=== PATIENT | male | born 1960 | race Caucasian/White ===

== ENCOUNTER 2017-07-21 13:30 | Emergency (ER) | payer OTHER ==
--- NOTE | 2017-07-21 15:59 | ED ---
Upper Extremity Pain - HPI Summary HPI Summary: Pt here w/ acute on chronic UE neuropathy, most recently Lt side. He reports sx of tingling, numbness sensation from axilla over ventral arm/forearm and into palm of hands/fingers. Denies weakness. Worse w/ movement, aggravated by walking - better w/ resting arm abducted away from body and rested on surface. Took ibuprofen prior to arrival which helped w/ rest and movement some. Took muscle relaxer last night which helped him sleep. No h/o neck pain but reports h /o carrying around backpacks and Lt shoulder would get numbness in trapezius area until he removed backpack. No h/o neck or shoulder trauma. Since he hasn't been carrying back packs recently, he believes his new triggers are from sleeping on his side as he wakes up with sx on the side where he slept (admits he slept on Lt side last night). Baseline neuropathy in hands/feet from DM. Denies pain, numbness or weakness in LE's and no headaches. - History of Current Complaint Hx Obtained From: Patient <Bonny Judd - Last Filed: 07/21/17 18:51> <Meghna Cruz - Last Filed: 07/22/17 07:37> - History of Current Complaint Chief Complaint: EDShoulderClavicleInj Stated Complaint: PAIN/ITCHING HAND-ARM Time Seen by Provider: 07/21/17 13:40 - Allergies/Home Medications Allergies/Adverse Reactions: Allergies Allergy/AdvReac Type Severity Reaction Status Date / Time Amoxicillin Allergy Intermediate Hives Verified 07/21/17 13:32 Shellfish Allergy Allergy Intermediate Hives Verified 07/21/17 13:32 Sulfamethoxazole Allergy Palpitation Verified 07/21/17 13:32 w/Trimethoprim s [From Bactrim] ENVIRONMENTAL/SHELLFISH Allergy CONGESTION,ITCHY Uncoded 07/21/17 13:32 EYES, RUNNY NOSE PMH/Surg Hx/FS Hx/Imm Hx Previously Healthy: Yes Endocrine/Hematology History: Reports: Hx Anticoagulant Therapy - plavix, Hx Diabetes, Hx Thyroid Disease - thyroid removed 1994, Hx Anemia - HISTORY OF, Other Endocrine/Hematological Disorders - Thyroid CA and Thyroidectomy Denies: Hx Blood Disorders, Hx Blood Transfusions, Hx Bone Marrow Disease, Hx Systemic Lupus Erythematosus, Hx Unexplained Bleeding Cardiovascular History: Reports: Hx Angina, Hx Angioplasty, Hx Auto Implanted Cardiovert Defib, Hx Cardiomegaly, Hx Congestive Heart Failure, Hx Coronary Artery Disease - CHOLESTEROL CONTROL WITH MEDICATIONS, Hx Hypercholesterolemia, Hx Hypertension - CONTROL WITH MEDS, Hx Myocardial Infarction, Hx Pacemaker/ICD , Hx Valvular Heart Disease, Other Cardiovascular Problems/Disorders - CAD Denies: Hx Aneurysm, Hx Cardiac Arrest, Hx Congenital Heart Disease, Hx Deep Vein Thrombosis, Hx Hypotension, Hx Peripheral Vascular Disease, Hx Rheumatic Fever, Hx Syncope Respiratory History: Reports: Hx Asthma, Hx Pleural Effusion, Hx Pneumonia, Hx Sleep Apnea - CANT SLEEP WITH CPAP, SO HE DOES NOT USE Denies: Hx Chronic Bronchitis, Hx Chronic Obstructive Pulmonary Disease (COPD ), Hx Cystic Fibrosis, Hx Lung Cancer, Hx Pulmonary Edema, Hx Pulmonary Embolism , Hx Seasonal Allergies, Other Respiratory Problems/Disorders GI History: Denies: Hx Cirrhosis, Hx Crohn's Disease, Hx Diverticulosis, Hx Gall Bladder Disease, Hx Gastroesophageal Reflux Disease, Hx Gastrointestinal Bleed, Hx Hiatal Hernia, Hx Irritable Bowel, Hx Jaundice, Hx Obstructive Bowel, Hx Ileostomy, Hx Pyloric Stenosis, Hx Ulcer, Other GI Disorders History: Reports: Hx Benign Prostatic Hyperplasia, Other Problems/ Disorders - SMALL BLADDER, Denies: Hx Acute Renal Failure, Hx Chronic Renal Failure, Hx Dialysis, Hx Kidney Infection, Hx Kidney Stones, Hx Renal Disease Musculoskeletal History: Reports: Hx Arthritis, Hx Tendonitis - HISTORY OF IN RIGHT FORE ARM, Other Musculoskeletal History - screws and plates in R ankle Denies: Hx Rheumatoid Arthritis, Hx Back Problems, Hx Bursitis, Hx Congenital Bone Abnormalities, Hx Fibromyalgia, Hx Gout, Hx Orthopedic Injury, Hx Osteoporosis, Hx Scoliosis Sensory History: Reports: Hx Cataracts - MILD, Hx Contacts or Glasses, Hx Vision Problem Denies: Hx Eye Injury, Hx Eye Prosthesis, Hx Glaucoma, Hx Macular Degeneration, Hx Deafness, Hx Hearing Aid, Hx Hearing Problem, Other Sensory Impairments Opthamlomology History: Reports: Hx Cataracts - MILD, Hx Contacts or Glasses, Hx Vision Problem Denies: Hx Eye Injury, Hx Eye Prosthesis, Hx Glaucoma, Hx Macular Degeneration, Other Sensory Impairments Neurological History: Reports: Hx Nerve Disease - neuropathy bilat hands & feet , Other Neuro Impairments/Disorders - Neuropathy in bilateral hands and feet Denies: Hx Dementia, Hx Developmental Delay, Hx Headaches, Hx Migraine, Hx Seizures, Hx Spinal Cord Injury, Hx Transient Ischemic Attacks (TIA) Psychiatric History: Reports: Hx Anxiety - ON MEDS, Hx Depression - ON MEDS, Hx Inpatient Treatment, Hx Suicide Attempt Denies: Hx Attention Deficit Hyperactivity Disorder, Hx Eating Disorder, Hx Panic Disorder, Hx Post Traumatic Stress Disorder, Hx Community Mental Health Tx , Hx Schizophrenia, Hx Bipolar Disorder, Hx of Violent Episodes Against Others, Hx Substance Abuse, Other Psychiatric Issues/Disorders - Cancer History Cancer Type, Location and Year: THYROID Hx Chemotherapy: No Hx Radiation Therapy: Yes - Surgical History Surgery Procedure, Year, and Place: 1993 LEFT NECK DISCECTOMY, ANAYA. 1994: THYROIDECTOMY, ANAYA. 2009: 6 screws and plate (unknown material) in right ankle [place] fall [place] [facility] [place] pacer/defibrillator [place]. 2007: CARDIAC CATHERIZATION WITH STENT, JACLYN. 03/2103 [employer]TRONIC PACEMAKER INSERTED, [facility] [place] Hx Anesthesia Reactions: No - Immunization History Date of Tetanus Vaccine: Unk Date of Influenza Vaccine: Unk Infectious Disease History: No Infectious Disease History: Denies: Hx Hepatitis, Hx Human Immunodeficiency Virus (HIV), Hx Shingles, Hx Tuberculosis, Traveled Outside the [place] in Last 30 Days - Family History Known Family History: Positive: Cardiac Disease, Diabetes, Other - COPD - mother - Social History Alcohol Use: None - currently Alcohol Amount: h/o abuse - last time 6 months ago Hx Substance Use: Yes Substance Use Type: Reports: None Substance Use Comment - Amount & Last Used: last used last night Hx Tobacco Use: No Smoking Status (MU): Never Smoked Tobacco Have You Smoked in the Last Year: No <Bonny Judd - Last Filed: 07/21/17 18:51> Review of Systems Constitutional: Negative Negative: Fever, Chills Negative: Sore Throat, Ear Ache Cardiovascular: Negative Negative: Chest Pain - this does not feel like cardiac pain Respiratory: Negative Negative: Shortness Of Breath, Cough Gastrointestinal: Negative Negative: Abdominal Pain, Vomiting, Diarrhea, Nausea Positive: no symptoms reported Musculoskeletal: Other - see HPI Skin: Negative Neurological: Other - see HPI Psychological: Normal - stable - controlled All Other Systems Reviewed And Are Negative: Yes <Bonny Judd - Last Filed: 07/21/17 18:51> Physical Exam Triage Information Reviewed: Yes Vital Signs On Initial Exam: Initial Vitals Temp Pulse Resp BP Pulse Ox 96.4 F 77 20 164/103 97 07/21/17 13:32 07/21/17 13:32 07/21/17 13:32 07/21/17 13:32 07/21/17 13:32 Vital Signs Reviewed: Yes Appearance: Positive: Well-Appearing, No Pain Distress - at rest w/ Lt arm abducted from body, resting on a table, Obese Skin: Positive: Warm, Dry - no erythema, no ecchymosis over axillary area, breast, shoulder or back Head/Face: Positive: Normal Head/Face Inspection Eyes: Positive: EOMI ENT: Positive: Hearing grossly normal Neck: Positive: Supple, Nontender Respiratory/Lung Sounds: Positive: Breath Sounds Present Cardiovascular: Positive: Pulses are Symmetrical in both Upper and Lower Extremities - no edema of UE's Musculoskeletal: Positive: Normal, Strength/ROM Intact - fingers, wrist, elbow - can move shoulder but is apprehensive; better w/ passive ROM on Lt, Pain @ - supraspinatus m is TTP, delt w/ mild TTP Neurological: Positive: Normal, Sensory/Motor Intact, Alert, Oriented to Person Place, Time, CN Intact II-III Psychiatric: Positive: Normal - Kai Coma Scale Coma Scale Total: 15 <Bonny Judd - Last Filed: 07/21/17 18:51> Vital Signs On Initial Exam: Initial Vitals Temp Pulse Resp BP Pulse Ox 96.4 F 77 20 164/103 97 07/21/17 13:32 07/21/17 13:32 07/21/17 13:32 07/21/17 13:32 07/21/17 13:32 <Meghna Cruz - Last Filed: 07/22/17 07:37> Diagnostics - Vital Signs Vital Signs Temp Pulse Resp BP Pulse Ox 07/21/17 14:43 69 16 143/97 98 07/21/17 13:40 96.4 F 72 20 164/103 97 07/21/17 13:32 96.4 F 77 20 164/103 97 <Bonny Judd - Last Filed: 07/21/17 18:51> - Vital Signs Vital Signs Temp Pulse Resp BP Pulse Ox 07/21/17 19:39 97.8 F 70 17 154/94 07/21/17 14:43 69 16 143/97 98 07/21/17 13:40 96.4 F 72 20 164/103 97 07/21/17 13:32 96.4 F 77 20 164/103 97 <Meghna Cruz - Last Filed: 07/22/17 07:37> Course/Dx <Bonny Judd - Last Filed: 07/21/17 18:51> <Meghna Cruz - Last Filed: 07/22/17 07:37> - Diagnoses Provider Diagnoses: Cervical arthritis Discharge <Bonny Judd - Last Filed: 07/21/17 18:51> <Meghna Cruz - Last Filed: 07/22/17 07:37> - Discharge Plan Condition: Stable Disposition: HOME Patient Education Materials: Cervical Radiculopathy (ED), Degenerative Disc Disease (ED) Referrals: Rodolfo Tan MD [Primary Care Provider] - Additional Instructions: Rest, heat applied to neck Avoid looking down or up for extended periods of time - do not overhead reach, do not lift You may take acetaminophen 650mg every 6 hours for pain You may wear a soft cervical collar at night for prevention of poor neck posture while sleeping Follow-up with PCP this week - call tomorrow to schedule an appointment. *If you develop weakness, numbness or headache, change in vision, vomiting, return to ED Attestation Statement User Type: Provider - I was available for consult. This patient was seen by the [facility]. The patient was not presented to, seen by, or examined by me. -Av <Meghna Cruz - Last Filed: 07/22/17 07:37>
--- NOTE | 2017-07-21 16:17 | RAD ---
HISTORY: Left arm neuropathy COMPARISONS: None TECHNIQUE: Multiple contiguous axial CT scans were obtained of the cervical spine without intravenous contrast, with coronal and sagittal multiplanar reformations. FINDINGS: BRAIN: The visualized brain is unremarkable CENTRAL CANAL: Evaluation of the central canal is limited on CT technique; however, there is no obvious canalicular mass or epidural hemorrhage. ALIGNMENT: The alignment is normal, without subluxation or dislocation. VERTEBRAL BODIES: There is multilevel anterolateral marginal osteophyte formation most pronounced at C5-C6 and C6-C7. JOINTS: There is osteoarthritis of the atlantoaxial joint. There is osteoarthritis of the intervertebral and facet joints MUSCULATURE: Unremarkable INTERVERTEBRAL DISCS: There is diffuse loss of intervertebral disc height. AXIAL IMAGES: C2-C3: There is bilateral uncovertebral and facet hypertrophy. There is severe left neural foraminal narrowing. There is moderate right neural from February. There is mild narrowing of the central canal. C3-C4: There is bilateral uncovertebral and facet hypertrophy. There is severe bilateral neural foraminal narrowing. There is mild narrowing of the central canal. C4-C5: There is bilateral uncovertebral and facet hypertrophy. There is moderate bilateral neural foraminal narrowing. There is a small central disc protrusion measuring 0.3 centers in depth. There is no significant osseous central canal stenosis. C5-C6: There is bilateral uncovertebral and facet hypertrophy. There is severe bilateral neural foraminal narrowing. There is moderate narrowing of the central canal. C6-C7: There is bilateral uncovertebral facet hypertrophy. There is mild left and moderate right neural foraminal narrowing. There is moderate narrowing of the central canal. C7-T1: There is no osseous neural foraminal narrowing or central canal stenosis. SOFT TISSUES: The visualized soft tissues of the neck are unremarkable. The prevertebral fat stripe is preserved. OTHER: None. IMPRESSION: 1. DEGENERATIVE DISC DISEASE AND OSTEOARTHRITIS. 2. THERE IS MODERATE NARROWING OF THE CENTRAL CANAL AT C5-C6 AND C6-C7 WITH MILD NARROWING AT C2-C3 AND C3-C4. 3. THERE IS MULTILEVEL NEURAL FORAMINAL NARROWING DESCRIBED ABOVE
--- NOTE | 2017-07-21 18:02 | RAD ---
INDICATION: Left upper extremity neuropathy COMPARISON: None. TECHNIQUE: 4 views of the left shoulder were obtained. FINDINGS: The adequately corticated bones are in normal alignment. Joint spaces appear maintained. No fracture, dislocation or focal bony abnormality is seen. IMPRESSION: Normal radiograph of the left shoulder. If the patient's symptoms persist, follow-up imaging is recommended.
[2017-07-21 19:40] VITALS: BP 154/94
== END 2017-07-21 19:43 | disposition home or self-care (01) ==
LOC: ED 13:30
DX: M13.88 Other specified arthritis, other site (principal)
CPT/HCPCS: 72125; 93005; 99282

== ENCOUNTER 2019-06-25 02:34 | Emergency (ER) | payer OTHER ==
--- NOTE | 2019-06-25 03:26 | ED ---
HPI Cardiac - HPI Summary HPI Summary: This pt is a 59 y/o male presenting to [facility] c/o SOB. Pt reports he had a stent placed on 06/21/19 at [facility] and states it was an elective procedure. Prior to having stent placed he states he had to see a leasing representative to get his magnesium up and potassium down. 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 Small, recommended a stent. Pt reports since being discharged home from [facility] he has felt fatigued with mild exertion. At first he was able to do some things around his home but then began to feel tired. Pt believes his SOB has worsened since his procedure. Pt felt SOB from walking from his car to the ED today. 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 He reports he took his blood pressure at home and notes it was elevated. He states he has transient chest pain. Denies cough. - History of Current Complaint Chief Complaint: EDHypertension Stated Complaint: HIGH BP PER PT Time Seen by Provider: 06/25/19 03:17 Hx Obtained From: Patient Onset/Duration: Started Days Ago, Still Present Timing: Lasting Days Current Severity: Moderate Pain Intensity: 4 Pain Scale Used: 0-10 Numeric Chest Pain Location: Mid Sternal Chest Pain Radiates: No Aggravating Factor(s): Nothing Alleviating Factor(s): Nothing Associated Signs and Symptoms: Positive: Chest Pain, Shortness of Breath, Nausea , Vomiting. Negative: Fever, Chills, Cough - Allergy/Home Medications Allergies/Adverse Reactions: Allergies Allergy/AdvReac Type Severity Reaction Status Date / Time shellfish derived Allergy Intermediate Hives Verified 06/25/19 02:41 Sulfa (Sulfonamide Allergy Intermediate Palpitation Verified 06/25/19 02:41 Antibiotics) s amoxicillin Allergy Hives Verified 06/25/19 02:41 ENVIRONMENTAL/SHELLFISH Allergy CONGESTION,ITCHY Uncoded 06/25/19 02:41 EYES, RUNNY NOSE Home Medications: Home Medications Albuterol HFA INHALER* [Ventolin HFA Inhaler*] 1 - 2 puff INH Q4H PRN 06/25/19 [ History Confirmed 06/25/19] Aspirin 81 mg CHEW TAB* [Aspirin Low Dose TAB*] 81 mg PO DAILY 06/25/19 [ History Confirmed 06/25/19] Cyclobenzaprine TAB* [Flexeril 10 MG TAB*] 10 mg PO TID PRN 06/25/19 [History Confirmed 06/25/19] Insulin Glargine,Hum.rec.anlog [Lantus Solostar] 100 unit SQ DAILY 06/25/19 [ History Confirmed 06/25/19] Isosorbide Mononitrate ER TAB* [Imdur ER TAB*] 120 mg PO DAILY 06/25/19 [ History Confirmed 06/25/19] Loratadine 10 mg PO DAILY 06/25/19 [History Confirmed 06/25/19] Nitroglycerin TAB 0.4 MG* 0.4 mg SL Q5M PRN 06/25/19 [History Confirmed 06/25/19 ] Rivaroxaban TAB(*) [Xarelto 20 mg] 20 mg PO DAILY 06/25/19 [History Confirmed ] hydrALAZINE TAB* [Apresoline TAB*] 25 mg PO TID 06/25/19 [History Confirmed ] PMH/Surg Hx/FS Hx/Imm Hx Endocrine/Hematology History: Reports: Hx Anticoagulant Therapy - plavix, Hx Diabetes, Hx Thyroid Disease - removed, Hx Anemia - HISTORY OF, Other Endocrine/ Hematological Disorders - Thyroid CA and Thyroidectomy Denies: Hx Blood Disorders, Hx Blood Transfusions, Hx Bone Marrow Disease, Hx Systemic Lupus Erythematosus, Hx Unexplained Bleeding Cardiovascular History: Reports: Hx Angina, Hx Angioplasty, Hx Auto Implanted Cardiovert Defib, Hx Cardiomegaly, Hx Congestive Heart Failure, Hx Coronary Artery Disease - CHOLESTEROL CONTROL WITH MEDICATIONS, Hx Hypercholesterolemia, Hx Hypertension, Hx Myocardial Infarction, Hx Pacemaker/ICD, Hx Valvular Heart Disease, Other Cardiovascular Problems/Disorders - CAD Denies: Hx Aneurysm, Hx Cardiac Arrest, Hx Congenital Heart Disease, Hx Deep Vein Thrombosis, Hx Hypotension, Hx Peripheral Vascular Disease, Hx Rheumatic Fever, Hx Syncope Respiratory History: Reports: Hx Asthma, Hx Pleural Effusion, Hx Pneumonia, Hx Sleep Apnea - CANT SLEEP WITH CPAP, SO HE DOES NOT USE Denies: Hx Chronic Bronchitis, Hx Chronic Obstructive Pulmonary Disease (COPD ), Hx Cystic Fibrosis, Hx Lung Cancer, Hx Pulmonary Edema, Hx Pulmonary Embolism , Hx Seasonal Allergies, Other Respiratory Problems/Disorders GI History: Denies: Hx Cirrhosis, Hx Crohn's Disease, Hx Diverticulosis, Hx Gall Bladder Disease, Hx Gastroesophageal Reflux Disease, Hx Gastrointestinal Bleed, Hx Hiatal Hernia, Hx Irritable Bowel, Hx Jaundice, Hx Obstructive Bowel, Hx Ileostomy, Hx Pyloric Stenosis, Hx Ulcer, Other GI Disorders History: Reports: Hx Benign Prostatic Hyperplasia, Other Problems/ Disorders - SMALL BLADDER, Denies: Hx Acute Renal Failure, Hx Chronic Renal Failure, Hx Dialysis, Hx Kidney Infection, Hx Kidney Stones, Hx Renal Disease Musculoskeletal History: Reports: Hx Arthritis, Hx Tendonitis - HISTORY OF IN RIGHT FORE ARM, Other Musculoskeletal History - screws and plates in R ankle Denies: Hx Rheumatoid Arthritis, Hx Back Problems, Hx Bursitis, Hx Congenital Bone Abnormalities, Hx Fibromyalgia, Hx Gout, Hx Orthopedic Injury, Hx Osteoporosis, Hx Scoliosis Sensory History: Reports: Hx Cataracts - MILD, Hx Contacts or Glasses, Hx Vision Problem Denies: Hx Eye Injury, Hx Eye Prosthesis, Hx Glaucoma, Hx Macular Degeneration, Hx Deafness, Hx Hearing Aid, Hx Hearing Problem, Other Sensory Impairments Opthamlomology History: Reports: Hx Cataracts - MILD, Hx Contacts or Glasses, Hx Vision Problem Denies: Hx Eye Injury, Hx Eye Prosthesis, Hx Glaucoma, Hx Macular Degeneration, Other Sensory Impairments Neurological History: Reports: Hx Nerve Disease - neuropathy bilat hands & feet , Other Neuro Impairments/Disorders - Neuropathy in bilateral hands and feet Denies: Hx Dementia, Hx Developmental Delay, Hx Headaches, Hx Migraine, Hx Seizures, Hx Spinal Cord Injury, Hx Transient Ischemic Attacks (TIA) Psychiatric History: Reports: Hx Anxiety - ON MEDS, Hx Depression - ON MEDS, Hx Inpatient Treatment, Hx Suicide Attempt Denies: Hx Attention Deficit Hyperactivity Disorder, Hx Eating Disorder, Hx Panic Disorder, Hx Post Traumatic Stress Disorder, Hx Community Mental Health Tx , Hx Schizophrenia, Hx Bipolar Disorder, Hx of Violent Episodes Against Others, Hx Substance Abuse, Other Psychiatric Issues/Disorders - Cancer History Cancer Type, Location and Year: THYROID Hx Chemotherapy: No Hx Radiation Therapy: Yes - Surgical History Surgery Procedure, Year, and Place: 1993 LEFT NECK DISCECTOMY, ANAYA. 1994: THYROIDECTOMY, ANAYA. 2009: 6 screws and plate (unknown material) in right ankle after fall on ice, [facility], pacer/defibrillator implant. 2008: CARDIAC CATHERIZATION WITH STENT, ANAYA. 03/2103 [employer] PACEMAKER INSERTED, [facility] Hx Anesthesia Reactions: No - Immunization History Date of Tetanus Vaccine: Unk Date of Influenza Vaccine: Unk Infectious Disease History: No Infectious Disease History: Denies: Hx Hepatitis, Hx Human Immunodeficiency Virus (HIV), Hx Shingles, Hx Tuberculosis, Traveled Outside the [place] in Last 30 Days - Family History Known Family History: Positive: Cardiac Disease, Diabetes, Other - COPD - mother - Social History Alcohol Use: hx Alcohol Amount: h/o abuse - last time 5 days ago Hx Substance Use: Yes Substance Use Type: Reports: None Substance Use Comment - Amount & Last Used: last used last night Hx Tobacco Use: No Smoking Status (MU): Never Smoked Tobacco Have You Smoked in the Last Year: No Review of Systems Positive: Fatigue. Negative: Fever Positive: Chest Pain - transient Positive: Shortness Of Breath. Negative: Cough Positive: Vomiting, Nausea All Other Systems Reviewed And Are Negative: Yes Physical Exam - Summary Physical Exam Summary: Appearance: Well-appearing, Obese male lying on the stretcher in no acute distress. Skin: Warm, dry, no obvious rash Eyes: sclera anicteric, no conjunctival pallor ENT: mucous membranes moist, pharynx appears normal Neck: Supple, nontender Respiratory: Clear to auscultation, no signs of respiratory distress Cardiovascular: Normal S1, S2. No murmurs. Normal distal pulses in tibial and radial bilaterally. Abdomen: Soft, nontender, normal active bowel sounds present Musculoskeletal: Normal, Strength/ROM Intact Neurological: A&Ox3, awake and alert, mentation is normal, speech is fluent and appropriate Psychiatric: affect is normal, does not appear anxious or depressed Triage Information Reviewed: Yes Vital Signs On Initial Exam: Initial Vitals Temp Pulse Resp BP Pulse Ox 98.7 F 78 16 168/112 95 06/25/19 02:35 06/25/19 02:35 06/25/19 02:35 06/25/19 02:35 06/25/19 02:35 Vital Signs Reviewed: Yes Diagnostics - Vital Signs Vital Signs Temp Pulse Resp BP Pulse Ox 06/25/19 02:35 98.7 F 78 16 168/112 95 - Laboratory Result Diagrams: 06/25/19 05:17 06/25/19 05:17 Lab Statement: Any lab studies that have been ordered have been reviewed, and results considered in the medical decision making process. - Radiology Chest XR Radiology Interpretation Completed By: ED Physician Summary of Radiographic Findings: No acute process. - EKG 03:20 Cardiac Rate: NL - at 70 bpm EKG Rhythm: Sinus Rhythm Summary of EKG Findings: Sinus rhythm at 70 bpm. Nonspecific intraventricular conduction delay. Inferior infarct, old. No STEMI. Re-Evaluation - Re-Evaluation First Eval Re-Evaluation Time: 04:08 Comment: Blood pressure of 149/91. Second Eval Re-Evaluation Time: 06:28 Comment: Reviewed results with pt. He will be discharged home. Disposition - Course Assessment/Plan: Pt is a 59 y/o male presenting to [facility] c/o fatigue, SOB, high blood pressure, transient chest pain. 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 Pt reports he had a stent placed on 06/21/19 at [facility]. Lab results unremarkable except for glucose of 137. EKG shows sinus rhythm at 70 bpm. Nonspecific intraventricular conduction delay. Inferior infarct, old. No STEMI. Chest XR shows no acute process. Pt will be discharged home with follow up from his PCP for further work up. Return precautions were given. - Diagnoses Provider Diagnoses: Dyspnea Discharge - Sign-Out/Discharge Documenting (check all that apply): Patient Departure - Discharge home Patient Received Moderate/Deep Sedation with Procedure: No - Discharge Plan Condition: Stable Disposition: HOME Patient Education Materials: Dyspnea (ED) Referrals: Rodolfo Tan MD [Primary Care Provider] - Additional Instructions: The tests we ran tonight did not show any sign of instability in your heart condition, and the chest x ray did not show any excess fluid or other problem that would explain your breathing problems. I think it is safe for you to go home this morning, but would ask that you contact your primary care provider. 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 - Billing Disposition and Condition Condition: STABLE Disposition: Home - Attestation Statements Document Initiated by Isela: Yes Documenting Scribe: Leonie Pond Provider For Whom Isela is Documenting (Include Credential): True Watts MD Scribe Attestation: Leonie Morgan scribed for True Watts MD on 06/26/19 at 0219. Scribe Documentation Reviewed: Yes Provider Attestation: The documentation as recorded by the Leonie ward accurately reflects the service I personally performed and the decisions made by me, True Watts MD Status of Scribmike Document: Viewed
[2019-06-25 05:23] LABS: ABS Basophils 0.1 10^3/ul (0-0.2); ABS Eosinophils 0.4 10^3/ul (0-0.6); ABS Lymphocytes 2.2 10^3/ul (1.0-4.8); ABS Monocytes 0.7 10^3/ul (0-0.8); ABS Neutrophils 5.4 10^3/ul (1.5-7.7); Eosinophil % 4.6 %; Hematocrit 43 % (42-52); Hemoglobin 14.7 g/dL (14.0-18.0); Lymphocyte % 24.6 %; Mean Corpuscular HGB Conc 34 g/dL (31-36); Mean Corpuscular Hemoglobin 31 pg (27-31); Mean Corpuscular Volume 91 fL (80-94); Mean Platelet Volume 7.8 fL (7.4-10.4); Platelet Count 265 10^3/uL (150-450); Red Blood Count 4.74 10^6 /uL (4.18-5.48); Red Cell Distribution Width 14 % (10-15); White Blood Count 8.8 10^3/uL (3.5-10.8)
[2019-06-25 05:39] LABS: Albumin 4.4 g/dL (3.2-5.2); Albumin/Globulin Ratio 1.5 (1-3); BUN/Creatinine Ratio 16.7 (8-20); Calcium 9.3 mg/dL (8.6-10.3); EGFR African American 74.5 (>60); EGFR Non-African American 61.6 (>60); Total Bilirubin 0.4 mg/dL (0.2-1.0); Total Protein 7.4 g/dL (6.4-8.9)
[2019-06-25 06:39] VITALS: BP 146/101
== END 2019-06-25 06:55 | disposition home or self-care (01) ==
LOC: ED 02:34
DX: R06.00 Dyspnea, unspecified (principal); R07.89 Other chest pain; R53.83 Other fatigue; R11.2 Nausea with vomiting, unspecified; E11.40 Type 2 diabetes mellitus with diabetic neuropathy, unspecified; Z79.4 Long term (current) use of insulin; E78.00 Pure hypercholesterolemia, unspecified; I25.2 Old myocardial infarction; I11.0 Hypertensive heart disease with heart failure; J45.909 Unspecified asthma, uncomplicated; N40.0 Benign prostatic hyperplasia without lower urinary tract symptoms; F41.9 Anxiety disorder, unspecified; F32.9 Major depressive disorder, single episode, unspecified; Z79.01 Long term (current) use of anticoagulants; Z95.5 Presence of coronary angioplasty implant and graft; Z95.810 Presence of automatic (implantable) cardiac defibrillator; E89.0 Postprocedural hypothyroidism; Z88.2 Allergy status to sulfonamides; Z88.0 Allergy status to penicillin; Z91.013 Allergy to seafood; Z82.49 Family history of ischemic heart disease and other diseases of the circulatory system; Z83.3 Family history of diabetes mellitus; Z83.6 Family history of other diseases of the respiratory system
CPT/HCPCS: 36415; 71046; 80053; 83605; 84484; 85025; 93005; 99284

== ENCOUNTER 2020-04-14 14:56 | Inpatient (IN) ==
[2020-04-14 15:50] LABS: ABS Basophils 0.1 10^3/ul (0-0.2); ABS Eosinophils 0.3 10^3/ul (0-0.6); ABS Lymphocytes 2.2 10^3/ul (1.0-4.8); ABS Monocytes 0.7 10^3/ul (0-0.8); Eosinophil % 3.5 %; Hematocrit 41 % (42-52); Mean Corpuscular HGB Conc 35 g/dL (31-36); Mean Corpuscular Hemoglobin 32 pg (27-31); Mean Corpuscular Volume 93 fL (80-94); Mean Platelet Volume 7.6 fL (7.4-10.4); Nucleated Red Blood Cells % 0.1; Platelet Count 271 10^3/uL (150-450); Red Blood Count 4.37 10^6 /uL (4.18-5.48); Red Cell Distribution Width 15 % (10-15); White Blood Count 8.5 10^3/uL (3.5-10.8)
[2020-04-14 15:56] LABS: INR 1.12 (0.82-1.09)
[2020-04-14 16:09] LABS: ALT 13 U/L (7-52); AST 13 U/L (13-39); Albumin 4.5 g/dL (3.2-5.2); Albumin/Globulin Ratio 1.7 (1-3); Alkaline Phosphatase 58 U/L (34-104); Anion Gap 7 mmol/L (2-11); BUN/Creatinine Ratio 18.3 (8-20); Blood Urea Nitrogen 22 mg/dL (6-24); CO2 Carbon Dioxide 24 mmol/L (22-32); Calcium 9.5 mg/dL (8.6-10.3); Chloride 106 mmol/L (101-111); EGFR African American 74.2 (>60); EGFR Non-African American 61.3 (>60); Globulin 2.6 g/dL (2-4); Glucose 103 mg/dL (70-100); Potassium 4.3 mmol/L (3.5-5.0); Sodium 137 mmol/L (135-145); Total Protein 7.1 g/dL (6.4-8.9)
[2020-04-14] MEDS ORDERED: Dextrose 50% Syringe 50 ml 25 GM/50 ML SYRINGE IV PUSH PRN (19:53)
[2020-04-14 20:25] LABS: Magnesium 1.7 mg/dL (1.9-2.7)
[2020-04-14] MEDS ORDERED: LOPERAMIDE HCL 2 MG PO PRN (20:39)
[2020-04-14] MEDS ORDERED: Isosorbide Mononit ER 60mg TAB PO SCH (21:00)
[2020-04-14] MEDS ORDERED: FENOFIBRATE 130 MG PO SCH (21:00)
[2020-04-14] MEDS ORDERED: Sotalol 120 mg TAB (NF) PO SCH (21:00)
[2020-04-14] MEDS ORDERED: PRAVASTATIN 80 MG PO SCH (21:00)
[2020-04-14 21:03] LABS: HDL Cholesterol 36.3 mg/dL
[2020-04-14 21:03] LABS: Urine Appearance Clear; Urine Bilirubin Negative (Negative); Urine Blood Negative (Negative); Urine Color Yellow; Urine Glucose Negative (Negative); Urine Ketones Negative (Negative); Urine Nitrite Negative (Negative); Urine Protein 2+(100 mg/dL) (Negative); Urine Specific Gravity 1.009 (1.010-1.030); Urine Urobilinogen Negative (Negative)
[2020-04-14 21:04] LABS: Urine Bacteria Absent (Absent); Urine Red Blood Cell Trace(0-2/hpf) (Absent); Urine White Blood Cell Trace(0-5/hpf) (Absent)
[2020-04-14 21:17] LABS: Urine Benzodiazepine Screen Presumptive Positive (None Detect); Urine Opiates Screen None Detected (None Detect)
[2020-04-14 21:52] LABS: Alcohol, S < 10 mg/dL (<10)
[2020-04-14] MEDS ORDERED: Isosorbide Mononit ER 60mg TAB PO ONE (21:59)
[2020-04-14] MEDS ORDERED: Thiamine 100 MG/ML 2 ml VIAL (200 mg) IM ONE (23:05)
[2020-04-15] MEDS: Multivitamins/Minerals TAB PO SCH ×2 (00:10→08:41)
[2020-04-15 06:41] LABS: ABS Basophils 0.1 10^3/ul (0-0.2); ABS Eosinophils 0.3 10^3/ul (0-0.6); ABS Lymphocytes 2.6 10^3/ul (1.0-4.8); ABS Monocytes 0.8 10^3/ul (0-0.8); Eosinophil % 3.3 %; Hematocrit 40 % (42-52); Mean Corpuscular HGB Conc 35 g/dL (31-36); Mean Corpuscular Hemoglobin 33 pg (27-31); Mean Corpuscular Volume 94 fL (80-94); Mean Platelet Volume 7.8 fL (7.4-10.4); Nucleated Red Blood Cells % 0.1; Platelet Count 246 10^3/uL (150-450); Red Blood Count 4.27 10^6 /uL (4.18-5.48); Red Cell Distribution Width 15 % (10-15); White Blood Count 8.6 10^3/uL (3.5-10.8)
[2020-04-15 06:58] LABS: BUN/Creatinine Ratio 16.4 (8-20); Calcium 9.1 mg/dL (8.6-10.3); EGFR African American 72.8 (>60); EGFR Non-African American 60.2 (>60); Magnesium 1.6 mg/dL (1.9-2.7)
[2020-04-15] MEDS ORDERED: Perflutren Lipid Microsphere 3 ML VIAL ONE (07:31)
[2020-04-15 08:35] LABS: TSH (Thyroid Stimulating Horm) 22.92 mcIU/mL (0.34-5.60)
[2020-04-15] MEDS: Isosorbide Mononit ER 60mg TAB PO SCH ×2 (08:42→21:19)
[2020-04-15] MEDS: Insulin GLARGINE 100 un/ml 10 ml VIAL SUBCUT SCH (08:43)
[2020-04-15] MEDS ORDERED: LORATADINE 10 MG PO SCH (09:00)
[2020-04-15] MEDS ORDERED: ISOSORBIDE MONONITRATE 120 MG PO SCH (09:00)
[2020-04-15 11:46] LABS: TSH (Thyroid Stimulating Horm) 14.27 mcIU/mL (0.34-5.60)
[2020-04-16] MEDS: Isosorbide Mononit ER 60mg TAB PO SCH ×2 (08:52→19:45)
[2020-04-16] MEDS: Multivitamins/Minerals TAB PO SCH (08:53)
[2020-04-16] MEDS: Insulin GLARGINE 100 un/ml 10 ml VIAL SUBCUT SCH (08:54)
[2020-04-17] MEDS: Multivitamins/Minerals TAB PO SCH (07:30)
[2020-04-17] MEDS: Isosorbide Mononit ER 60mg TAB PO SCH ×2 (07:31→21:20)
[2020-04-17] MEDS: Insulin GLARGINE 100 un/ml 10 ml VIAL SUBCUT SCH (07:33)
[2020-04-17 08:52] LABS: BUN/Creatinine Ratio 19.5 (8-20); Calcium 9.6 mg/dL (8.6-10.3); EGFR African American 68.9 (>60); EGFR Non-African American 56.9 (>60); Magnesium 1.8 mg/dL (1.9-2.7); Potassium 4.9 mmol/L (3.5-5.0)
[2020-04-17 09:16] LABS: TSH (Thyroid Stimulating Horm) 9.95 mcIU/mL (0.34-5.60)
[2020-04-17] MEDS ORDERED: Regadenoson 0.4 MG/5 ML SYRINGE ONE (11:29)
[2020-04-17] MEDS ORDERED: Aminophylline 25 MG/ML VIAL ONE (11:29)
[2020-04-18 08:12] VITALS: BP 135/83
[2020-04-18] MEDS: Multivitamins/Minerals TAB PO SCH (09:43)
[2020-04-18] MEDS: Isosorbide Mononit ER 60mg TAB PO SCH (09:43)
[2020-04-18] MEDS: Insulin GLARGINE 100 un/ml 10 ml VIAL SUBCUT SCH (09:46)
== END 2020-04-18 10:20 | disposition home or self-care (01) | DRG 198 ==
LOC: ED 14:56 → MEDTELE 14:56 → ED 21:10
PROVIDERS: ADMIT Internal Medicine; ATTEND Internal Medicine